=== PATIENT | male | born 1935 | race Hispanic/Latino ===

== ENCOUNTER → 2021-08-26 | Outpatient (CLI) | payer OTHER, MEDICARE ==
[~2021-08-26] MED LIST: ASPI-1005 PO; DONE5TAB33 PO; FAMO-136 PO; HYDR-4457 PO; LISI10TA24 PO; METF-444 PO; METO50TA18 PO; SIMV40TA59 PO
== END | disposition home or self-care (01) ==
LOC: SHCH 14:46
PROVIDERS: ATTEND Internal Medicine Cardiovascular Disease
DX: I87.2 Venous insufficiency (chronic) (peripheral) (principal)
CPT/HCPCS: 93970

== ENCOUNTER 2021-10-22 07:20 | Day surgery (SDC) | payer OTHER, MEDICARE ==
[2021-10-20 14:17] LABS: APPEARANCE,URINE SL CLOUDY (CLEAR); BILIRUBIN,URINE NEGATIVE (NEGATIVE); COLOR,URINE YELLOW (YELLOW); GLUCOSE, URINE (UA) NEGATIVE (NEGATIVE); KETONES,URINE NEGATIVE (NEGATIVE); LEUKOCYTE ESTERASE ,URINE SMALL (NEGATIVE); NITRATE,URINE NEGATIVE (NEGATIVE); OCCULT BLOOD,URINE NEGATIVE (NEGATIVE); PROTEIN,URINE NEGATIVE (NEGATIVE); UROBILINOGEN,URINE 0.2 mg/dL (0.2-1.0)
[2021-10-20 14:27] LABS: BACTERIA,URINE Few /HPF (None Seen); RBC,URINE 0-1 /HPF (0-1); SQUAMOUS EPITHELIAL CELL,UR Rare /HPF (0-2)
[2021-10-20 15:22] LABS: EOSINOPHILS % (AUTO) 6.4 % (0.0-8.0); LYMPHOCYTES % (AUTO) 41.3 % (21.0-51.0); MEAN CORPUSCULAR HEMOGLOBIN 30.9 pg (27.0-33.0); MEAN CORPUSCULAR HGB CONC 34.1 g/dL (32.0-36.0); MEAN CORPUSCULAR VOLUME 90.7 fL (79-99); MONOCYTES % (AUTO) 10.8 % (3.0-13.0); NEUTROPHILS % (AUTO) 40.1 % (40.0-77.0); PLATELET COUNT (AUTO) 193 K/uL (130-400); RED BLOOD CELL COUNT(AUTO) 4.08 MIL/uL (4.50-6.20); RED CELL DISTRIBUTION WIDTH 13.5 % (11.0-15.5); WHITE BLOOD COUNT (AUTO) 7.7 K/uL (4.8-10.8)
[2021-10-20 15:30] LABS: CREATININE 1.4 mg/dL (0.5-1.5); POTASSIUM 4.5 mmol/L (3.5-5.1)
[2021-10-20 15:32] LABS: PROTHROMBIN TIME 10.9 SEC (9.6-11.6)
[2021-10-20 15:33] LABS: PARTIAL THROMBOPLASTIN TIME 28.1 SEC (26.3-35.5)
[2021-10-20 16:01] LABS: B-TYPE NATRIURETIC PEPTIDE 95 pg/mL (0-100)
[2021-10-21 11:15] VITALS: BP 158/67
[2021-10-22] VITALS (9 sets, daily range): BP systolic 103–130; BP diastolic 46–63
[~2021-10-22] VITALS: Ht 167.6 cm; Wt 89.7 kg
[~2021-10-22 07:20] MED LIST changes: +0.9% NACL 500ML IV.SOLN 500 ML IV SCH; +AEC81 PO; -ASPI-1005 PO; +CETI10TA57 PO; -HYDR-4457 PO; +ISOS60TA77 PO; +MEMA5TAB42 PO; +NITR0.4T SL; +RANO500T6 PO; +TAMS-1 PO; +[UNRECOGNIZED DRUG - CODE] PO
[2021-10-22] MEDS ORDERED: 0.9%NACL 1000ML 1,000 ML IV ONE (08:14)
[2021-10-22] MEDS ORDERED: LIDOCAINE HCL 1% 20 ML VIAL ONE (10:33)
[2021-10-22] MEDS ORDERED: IOHEXOL 350 MG/ML 100ML INFUS..BTL IV ONE (10:33)
[2021-10-22] MEDS ORDERED: HEPARIN 10,000 UNIT/10ML (1,000 UNIT/ML) VIAL ONE (10:33)
[2021-10-22] MEDS ORDERED: IOHEXOL-350 50ML VIAL IV ONE (10:33)
[2021-10-22] MEDS ORDERED: BIVALIRUDIN 250 MG/VIAL IV ONE (10:33)
[2021-10-22] MEDS ORDERED: MIDAZOLAM HCL 1 MG/ML 2ML VIAL ONE (10:34)
[2021-10-22] MEDS ORDERED: FENTANYL CITRATE PF 50 MCG/1 ML 2ML VIAL ONE (10:34)
[2021-10-22] MEDS ORDERED: DEXTROSE 50%-WATER 50 ML DISP.SYRIN IV PRN (12:00)
[2021-10-22] MEDS ORDERED: METOPROLOL TARTRATE 1 MG/ML 5ML VIAL IV PRN (12:00)
[2021-10-22] MEDS ORDERED: 0.9%NACL 1000ML 1,000 ML IV SCH (12:00)
[2021-10-22] MEDS ORDERED: GLUCAGON 1MG KIT 1 MG ML IM PRN (12:00)
[2021-10-22] MEDS ORDERED: INSULIN HUMULIN R 100 UNIT/ML 3ML SQ SCH (16:30)
== END 2021-10-22 16:05 | disposition home or self-care (01) ==
LOC: DAH 07:20
PROVIDERS: ATTEND Internal Medicine Cardiovascular Disease
DX: I25.118 Atherosclerotic heart disease of native coronary artery with other forms of angina pectoris (principal); I11.0 Hypertensive heart disease with heart failure; I50.32 Chronic diastolic (congestive) heart failure; E11.51 Type 2 diabetes mellitus with diabetic peripheral angiopathy without gangrene; I87.1 Compression of vein; I87.2 Venous insufficiency (chronic) (peripheral); K21.9 Gastro-esophageal reflux disease without esophagitis; E66.9 Obesity, unspecified; E78.00 Pure hypercholesterolemia, unspecified; M17.11 Unilateral primary osteoarthritis, right knee; I25.2 Old myocardial infarction; Z79.84 Long term (current) use of oral hypoglycemic drugs; Z79.899 Other long term (current) drug therapy; Z79.82 Long term (current) use of aspirin; Z98.890 Other specified postprocedural states; Z95.5 Presence of coronary angioplasty implant and graft; Z68.31 Body mass index [BMI] 31.0-31.9, adult; Z95.0 Presence of cardiac pacemaker; Z87.891 Personal history of nicotine dependence; Z79.01 Long term (current) use of anticoagulants
CPT/HCPCS: 80048; 83880; 85025; 85610; 85730; 87088; 81001; 36415; 71045; 93005; 93455; 87077; 87186; 82948 ×2; C1769; C1894 ×2; C1760; Q9965; J7030; J2250; J1644; Q9967; A4215; A4222; A4221; A4663; A4216; A4606; A4223 ×3; 99156; 99157; J0583; J3010

== ENCOUNTER → 2022-04-05 | Outpatient (CLI) | payer OTHER, MEDICARE ==
[~2022-04-05] MED LIST changes: -0.9% NACL 500ML IV.SOLN 500 ML IV SCH
== END | disposition home or self-care (01) ==
LOC: RAH 10:30
PROVIDERS: ATTEND Internal Medicine
DX: M19.032 Primary osteoarthritis, left wrist (principal); M25.432 Effusion, left wrist
CPT/HCPCS: 73110

== ENCOUNTER → 2022-05-03 | Outpatient (CLI) | payer OTHER, MEDICARE | END | disposition home or self-care (01) | LOC: RAH 14:46 | PROVIDERS: ATTEND Internal Medicine Cardiovascular Disease | DX: J84.10 Pulmonary fibrosis, unspecified (principal); J47.9 Bronchiectasis, uncomplicated; Z98.890 Other specified postprocedural states | CPT/HCPCS: 71250 ==

== ENCOUNTER → 2022-06-02 | Outpatient (CLI) | payer OTHER, MEDICARE | END | disposition home or self-care (01) | LOC: SHCH 08:48 | PROVIDERS: ATTEND Internal Medicine Cardiovascular Disease | DX: I87.2 Venous insufficiency (chronic) (peripheral) (principal) | CPT/HCPCS: 93970 ==

== ENCOUNTER 2023-08-29 05:53 | Day surgery (SDC) | payer MEDICARE ==
[2023-08-25 13:49] LABS: BASOPHILS # (AUTO) 0.02 K/uL (0.00-0.20); BASOPHILS % (AUTO) 0.2 % (0.0-5.0); EOSINOPHILS # (AUTO) 0.01 K/uL (0.00-0.70); EOSINOPHILS % (AUTO) 0.1 % (0.0-8.0); HEMATOCRIT 39.1 % (42-54); IMMATURE GRANULOCYTE ABSOLUTE 0.06 K/uL (0-1); LYMPHOCYTES % (AUTO) 21.6 % (21.0-51.0); MEAN CORPUSCULAR HEMOGLOBIN 29.5 pg (27.0-33.0); MEAN CORPUSCULAR HGB CONC 33.5 g/dL (32.0-36.0); MEAN CORPUSCULAR VOLUME 88.1 fL (79-99); MONOCYTES # (AUTO) 0.4 K/uL (0.1-1.0); MONOCYTES % (AUTO) 4.4 % (3.0-13.0); NEUTROPHILS # (AUTO) 6.8 K/uL (1.8-7.7); NEUTROPHILS % (AUTO) 73.1 % (40.0-77.0); PLATELET COUNT (AUTO) 235 K/uL (130-400); RED BLOOD CELL COUNT(AUTO) 4.44 MIL/uL (4.50-6.20); RED CELL DISTRIBUTION WIDTH 14.3 % (11.0-15.5); WHITE BLOOD COUNT (AUTO) 9.3 K/uL (4.8-10.8)
[2023-08-25 14:01] LABS: CREATININE 1.5 mg/dL (0.5-1.3); POTASSIUM 5.1 mmol/L (3.5-5.1)
[2023-08-25 14:03] LABS: INR 1.07 (0.85-1.15); PROTHROMBIN TIME 11.5 SEC (9.6-11.6)
[2023-08-25 14:04] LABS: PARTIAL THROMBOPLASTIN TIME 25.9 SEC (26.3-35.5)
[2023-08-25 14:12] VITALS: BP 131/68; PULSE 65; RESP 17
[~2023-08-29] VITALS: Ht 167.6 cm; Wt 84.9 kg
[2023-08-29] VITALS (8 sets, daily range): BP systolic 95–125; BP diastolic 36–67; PULSE 60; RESP 16–18
[~2023-08-29 05:53] MED LIST changes: -CETI10TA57 PO; -DONE5TAB33 PO; -ISOS60TA77 PO; +MACR100 PO; +MEMA5TAB16 PO; -MEMA5TAB42 PO; -NITR0.4T SL; -RANO500T6 PO; -[UNRECOGNIZED DRUG - CODE] PO
[2023-08-29 06:17] LABS: CREATININE 1.4 mg/dL (0.5-1.3); POTASSIUM 4.4 mmol/L (3.5-5.1)
[2023-08-29] MEDS: 0.9%NACL 1000ML 1,000 ML IV ONE (06:35)
[2023-08-29] MEDS ORDERED: LIDOCAINE HCL 1% MDV 50ML VIAL ONE (14:55)
[2023-08-29] MEDS ORDERED: BUPIVACAINE/PF 0.25% 30ML VIAL IJ ONE (14:55)
[2023-08-29] MEDS ORDERED: VANCOMYCIN 1G/250ML KIT 500 ML IV ONE (14:55)
[2023-08-29] MEDS ORDERED: IOHEXOL-350 50ML VIAL IV ONE (15:05)
[2023-08-29] MEDS ORDERED: MEPERIDINE-PF 25 MG/ML SYG ONE (15:36)
[2023-08-29] MEDS ORDERED: MIDAZOLAM HCL 1 MG/ML 2ML VIAL ONE (15:36)
[2023-08-29] MEDS ORDERED: CEFAZOLIN SODIUM 1 GM VIAL ONE (15:41)
[2023-08-29] MEDS ORDERED: BACITRACIN 1 EACH PACKET TP ONE (16:29)
[2023-08-29] MEDS ORDERED: TRAM50TA4 PO (16:58)
[2023-08-29] MEDS ORDERED: ACETAMINOPHEN WITH CODEINE 1 TAB TAB PO PRN (17:00)
[2023-08-29] MEDS ORDERED: ACETAMINOPHEN 500 MG TABLET PO PRN (17:00)
== END 2023-08-29 19:46 | disposition home or self-care (01) ==
LOC: DAH 05:53
PROVIDERS: ATTEND Internal Medicine Cardiovascular Disease
DX: Z45.010 Encounter for checking and testing of cardiac pacemaker pulse generator [battery] (principal); I49.9 Cardiac arrhythmia, unspecified; I49.5 Sick sinus syndrome; I11.9 Hypertensive heart disease without heart failure; I25.10 Atherosclerotic heart disease of native coronary artery without angina pectoris; E11.9 Type 2 diabetes mellitus without complications; M17.11 Unilateral primary osteoarthritis, right knee; E78.00 Pure hypercholesterolemia, unspecified; Z87.891 Personal history of nicotine dependence; Z79.899 Other long term (current) drug therapy; Z96.653 Presence of artificial knee joint, bilateral
CPT/HCPCS: 80048 ×2; 85025; 85610; 85730; 36415 ×2; 93005; 33228; 82948 ×2; C1785; J0690; J7030; J0665; J2250; J3370; J2175; J3490; A4215; A4335; A4222; A4221; A4663; A4216; A4223 ×3; A4606; 99156; 99157; Q9967

== ENCOUNTER → 2024-05-18 | Outpatient (CLI) | payer MEDICARE ==
[~2024-05-18] MED LIST changes: +TRAM50TA4 PO
== END | disposition home or self-care (01) ==
LOC: SHCH 10:44
PROVIDERS: ATTEND Internal Medicine Cardiovascular Disease
DX: I08.3 Combined rheumatic disorders of mitral, aortic and tricuspid valves (principal)
CPT/HCPCS: 93306

== ENCOUNTER → 2024-07-11 | Outpatient (CLI) | payer MEDICARE ==
[~2024-07-11] MED LIST changes: -TAMS-1 PO; +TAMS-55 PO
[2024-07-11] MEDS: REGADENOSON 0.4 MG/5 ML PF SYG IVP ONE (10:56)
--- NOTE | 2024-07-11 13:57 | HMCSR ---
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 Informerd consent was witnessed Ross Medellin RN First, low dose rest was performed then high dose stress. RESTING DATA: The resting ekg shows: Pacemaker, NSR Rest SPECT myocardial perfusion imaging was performed in supine position 57 minutes following the int ravenous injection of 11 mCi of Tc-99 Sestamibi. Time of rest injection: 09:03: Date: 07/11/2024 Time of rest imagin:00: Date: 07/11/2024 PHARMACOLOGIC STRESS: Pharmacologic stress test was performed by injecting regadenoson 0.4 mg IV push followed by the intra venous injection of 32.7 mCi of Tc-99 Sestamibi. Time of stress injection: 10:27: Date: 07/11/2024 Time of stress imagin:39: Date: 07/11/2024 Heart Rate at time of stress injection: 68 bpm. Gated Stress SPECT was performed 72 minutes after stress injection. The images were gated to evaluate regional wall motion and calculate left ventricular ejection fracti on. STRESS DETAILS Reason for Termination: Infusion complete Stress Symptoms: Dyspnea Max HR Achieved: 66 bpm % of APMHR Achieved: 66 Max Blood Pressure: 120/84 mmHg Stress ECG: Pacemaker Study quality was good. Lung uptake was Normal. Artifact: increased GI uptake LEFT VENTRICLE Size: The left ventricular size is normal. Systolic Function:The left ventricular systolic function is normal. Wall Motion: Cannot assess regional wall motion abnormalities. The left ventricular ejection fraction was calculated to be 59%.TID = . LV PERFUSION There is a large area of decreased radiotracer uptake noted in the lateral wall which is more promine nt on the stress images compared to the rest images consistent with a reversible ischemia. There was also a moderate area of decreased radiotracer uptake noted in the inferior wall of moderate degree more prominent stress images compared to the rest images consistent with reversible ischemia. Conclusion Abnormal myocardial perfusion scan for moderate degree of lateral and inferior wall ischemia of moder ate to large size Preserved ejection fraction at 59% Moderate risk scan
== END ==
LOC: SHCH 08:33
PROVIDERS: ATTEND Internal Medicine Cardiovascular Disease
DX: I25.110 Atherosclerotic heart disease of native coronary artery with unstable angina pectoris (principal)
CPT/HCPCS: 78452; 93017; J2785; A9500 ×2